=== PATIENT | male | born 1950 | race Caucasian/White ===

== ENCOUNTER 2018-04-28 11:26 | Outpatient (CLI) | END 2018-04-28 11:27 | disposition home or self-care (01) | LOC: RHC-LAB 11:26 | PROVIDERS: ATTEND General Practice | DX: R07.9 Chest pain, unspecified (principal); I10 Essential (primary) hypertension; Z79.899 Other long term (current) drug therapy | CPT/HCPCS: 36415; 80053; 81001; 82550; 82553; 84484; 85025 ==

== ENCOUNTER 2018-04-30 14:20 | Outpatient (CLI) | END 2018-04-30 14:21 | disposition home or self-care (01) | LOC: RHC-LAB 14:20 | PROVIDERS: ATTEND General Practice | DX: R74.8 Abnormal levels of other serum enzymes (principal); R07.9 Chest pain, unspecified; I10 Essential (primary) hypertension; R79.89 Other specified abnormal findings of blood chemistry; R06.02 Shortness of breath | CPT/HCPCS: 36415; 82550; 82553; 83880; 84484 ==

== ENCOUNTER 2018-05-11 06:41 | Outpatient (CLI) ==
--- NOTE | 2018-05-11 08:40 | STRESSECHO ---
Date of Test: 05/11/18 Ordering Physician: DR. ISABELLE DIETRICH Occupation: RETIRED Reason for Exam: HTN, CHEST PAIN, NAUSEA SOB Smoking History: 40 PK/YR Height : 70" Weight: 175 LBS Current Medications: XANAX, NORVASC, COREG, APRESOLINE, HYDRODIURIL, COZAAR, PROTONIX Resting EKG: SINUS RHYTHM/ LEFT VENTRICULAR HYPERTROPHY WITH STRAIN Target Heart Rate: 129/152 S-T SEGMENT STAGE MPH/GRADE HEART RATE BPM BLOOD PRESSURE [facility] RHYTHM +/- ELEVATION DEPRESSION SYMPTOMS AT REST 64 BPM 180/96 [facility] SR X NONE 1 1.7/10% 97 BPM 190/90 [facility] SR X NONE 2 2.5/12% 3 3.4/14% 4 4.2/16% 5 5.0/18% Immediately After 115 BPM 186/92 [facility] SR X SHORT OF AIR/CHEST TIGHTNESS Minutes Post Exercise 3:00 80 BPM 210/98 [facility] SR X NO COMMENTS Minutes Post Exercise 12:00 66 BPM 170/90 [facility] SR X NO COMMENTS DURATION OF EXERCISE: 4:34 MAXIMUM HEART RATE REACHED: 115 BPM REASON FOR TERMINATION: SHORT OF AIR, CHEST TIGHTNESS 97% OXYGEN SATURATION WITH EXERCISE ON ROOM AIR METS 4.0 INTERPRETATION: 1. TEST POSITIVE FOR ISCHEMIC ST-T WAVE CHANGES 2. CHEST TIGHTNESS WITH EXERCISE 3. NO ARRHYTHMIAS 4. BLOOD PRESSURE RESPONSE: HYPERTENSION AT REST AND WITH EXERCISE MILDLY HYPOKINETIC LEFT VENTRICLE AT REST MTDD
--- NOTE | 2018-05-11 08:45 | ECHOSTRESS ---
Date of Exam: 05/11/18 Ordering Physician: DR. ISABELLE DIETRICH Reason for Echo: HTN, CHEST PAIN, NAUSEA, STRESS TEST --POSITIVE FOR ISCHEMIA M-Mode Normal Adult Results LV Dimensions Normal Adult Results AoV Opening excursions >1.6 LVEDD-base- 3.5-5.8 Ao root dimensions 2.0-3.7 LVESD-base- 3.1-4.6 L. Atrium dimensions 1.9-3.8 Post. Wall thickness 0.8-1.1 IV septum (thickness) 0.7-1.2 Post. Wall excursion 0.72-1.3 Septal motion Systolic motion R. Ventricular cavity 1.5-2.0 LVEF 60% Paradoxical septal wall motion 2-D: HYPERKINETIC LEFT VENTRICLE RESTING AND POST EXERCISE M-MODE: MV: AV: TV: PV: CHAMBER SIZE: WALL MOTION: HYPERKINETIC LEFT VENTRICLE RESTING AND POST EXERCISE PERICARDIUM: INTERPRETATION: 1. HYPERKINETIC LEFT VENTRICLE RESTING AND POST EXERCISE MTDD
== END 2018-05-11 06:42 | disposition home or self-care (01) ==
LOC: CAR 06:41
PROVIDERS: ATTEND General Practice
DX: R07.9 Chest pain, unspecified (principal); R11.0 Nausea; I10 Essential (primary) hypertension